=== PATIENT | male | born 1945 | race Caucasian/White ===

== ENCOUNTER 2019-01-20 07:45 | Day surgery (SDC) | payer MEDICARE, OTHER ==
[~2019-01-20] VITALS: Ht 162.6 cm; Wt 100.0 kg
[2019-01-20] MEDS ORDERED: SODIUM CHLORIDE 0.9% 1,000 ML IV SCH ×2 (08:02→10:36)
[2019-01-20] MEDS ORDERED: ISOS30TA8 PO (08:14)
[2019-01-20] MEDS ORDERED: ATOR20TA37 PO (08:14)
[2019-01-20] MEDS ORDERED: AMLO-150 PO (08:14)
[2019-01-20] MEDS ORDERED: IPRA4AER INH (08:14)
[2019-01-20] MEDS ORDERED: ASPI81TA45 PO (08:14)
[2019-01-20] MEDS ORDERED: MULT-751 PO (08:14)
[2019-01-20] MEDS ORDERED: OMEP40CA42 PO (08:14)
[2019-01-20 08:18] VITALS: BP 104/64
[2019-01-20] MEDS ORDERED: PLEASE ENTER HEIGHT AND WEIGHT AND ALLERGIES MC SCH (08:30)
[2019-01-20] MEDS ORDERED: CLOPIDOGREL 75 MG TABLET PO ONE (08:30)
[2019-01-20] MEDS ORDERED: FENTANYL PF 100 MCG/2ML ONE (09:04)
[2019-01-20] MEDS ORDERED: MIDAZOLAM 1 MG/ML, 5ML ONE (09:04)
[2019-01-20] MEDS ORDERED: HEPARIN 1,000 UNITS/ML, 10ML ONE (09:05)
[2019-01-20] MEDS ORDERED: NITROGLYCERIN 5 MG/ML, 10ML ONE (09:05)
[2019-01-20] MEDS ORDERED: VERAPAMIL 2.5 MG/ML, 2ML ONE (09:05)
[2019-01-20] MEDS ORDERED: LIDOCAINE-MPF 1%, 5ML ONE (09:05)
[2019-01-20] MEDS ORDERED: BIVALIRUDIN 250 MG ONE (09:38)
== END 2019-01-20 11:38 | disposition home or self-care (01) ==
LOC: CACL 07:45
PROVIDERS: ATTEND Internal Medicine Cardiovascular Disease
DX: R07.9 Chest pain, unspecified (principal); I25.728 Atherosclerosis of autologous artery coronary artery bypass graft(s) with other forms of angina pectoris; I25.82 Chronic total occlusion of coronary artery; I10 Essential (primary) hypertension; J44.9 Chronic obstructive pulmonary disease, unspecified; E78.5 Hyperlipidemia, unspecified; F17.290 Nicotine dependence, other tobacco product, uncomplicated; E66.3 Overweight; Z68.38 Body mass index [BMI] 38.0-38.9, adult; Z79.82 Long term (current) use of aspirin; Z79.899 Other long term (current) drug therapy
CPT/HCPCS: 93459; 99156; 99157; C1769; C1894; J1644; J2250; J3010; Q9967; J0583

== ENCOUNTER 2019-09-18 09:24 | Outpatient (CLI) | payer MEDICARE, OTHER ==
[~2019-09-18 09:24] MED LIST: AMLO-150 PO; ASPI81TA45 PO; ATOR20TA37 PO; IPRA4AER INH; ISOS30TA8 PO; MULT-751 PO; OMEP40CA42 PO
[2019-09-18 10:47] LABS: BASOPHILS # (AUTO) 0.05 x10^3/uL (0-0.1); BASOPHILS % (AUTO) 1 % (0-1); EOSINOPHILS % (AUTO) 8 % (1-7); LYMPHOCYTES % (AUTO) 27 % (22-44); MD NO; MEAN CORPUSCULAR HEMOGLOBIN 31.5 pg (27.5-34.5); MEAN CORPUSCULAR HGB CONC 33.4 g/dL (33.2-36.2); MEAN PLATELET VOLUME 8.2 fL (7.4-10.4); MONOCYTES # (AUTO) 0.61 x10^3/uL (0.2-0.8); MONOCYTES % (AUTO) 8 % (2-9); NEUTROPHILS # (AUTO) 4.25 x10^3/uL (1.8-6.8); NEUTROPHILS % (AUTO) 57 % (42-75); PLATELET COUNT 204 x10^3/uL (130-400); RED BLOOD COUNT 4.79 x10^6/uL (4.38-5.82); RED CELL DISTRIBUTION WIDTH 14.6 % (9.4-14.8)
[2019-09-18 12:27] LABS: CHLORIDE 108 mmol/L (98-107)
[2019-09-18 12:35] LABS: ALANINE AMINOTRANSFERASE 22 U/L (12-78); ALBUMIN 3.3 g/dL (3.4-5.0); ALKALINE PHOSPHATASE 85 U/L (45-117); ANION GAP 4 mmol/L (5-15); BILIRUBIN,TOTAL 0.5 mg/dL (0.2-1.0); CALCIUM 9.1 mg/dL (8.5-10.1); CREATININE 1.13 mg/dL (0.7-1.3); TOTAL PROTEIN 7.1 g/dL (6.4-8.2)
[2019-10-30] MEDS ORDERED: FURO20TA3 PO (06:57)
[2019-10-31] MEDS ORDERED: CLOP75TA PO (06:58)
== END 2019-09-18 23:59 | disposition home or self-care (01) ==
LOC: STAR 09:24
PROVIDERS: ATTEND Surgery
DX: Z01.818 Encounter for other preprocedural examination (principal); I71.4 Abdominal aortic aneurysm, without rupture; J92.9 Pleural plaque without asbestos
CPT/HCPCS: 36415; 71046; 80053; 85025; 87635; 93005

== ENCOUNTER 2019-09-22 05:41 | Day surgery (SDC) | payer MEDICARE, OTHER ==
[~2019-09-22] VITALS: Ht 162.6 cm; Wt 100.0 kg
[2019-09-22] MEDS ORDERED: SODIUM CHLORIDE 0.9% 1,000 ML IV SCH (06:18)
[2019-09-22 06:41] VITALS: BP 109/59
[2019-09-22] MEDS ORDERED: FLUMAZENIL 0.1 MG/1 ML, 5ML ONE (07:08)
[2019-09-22] MEDS ORDERED: MIDAZOLAM 1 MG/ML, 5ML ONE (07:08)
[2019-09-22] MEDS ORDERED: FENTANYL PF 100 MCG/2ML ONE (07:08)
[2019-09-22] MEDS ORDERED: HEPARIN 1,000 UNITS/ML, 10ML ONE ×2 (07:08→09:27)
[2019-09-22] MEDS ORDERED: NALOXONE 1 MG/ML, 2ML ONE (07:09)
[2019-09-22] MEDS ORDERED: PROTAMINE SULFATE 10 MG/ML, 25ML ONE (07:09)
[2019-09-22] MEDS ORDERED: LIDOCAINE 1%, 10ML ONE (07:23)
[2019-09-22] MEDS ORDERED: VISIPAQUE 270 MG/ML, 50ML BOTTLE ONE (08:00)
== END 2019-09-22 12:40 | disposition home or self-care (01) ==
LOC: OUT 05:41
PROVIDERS: ATTEND Surgery
DX: I71.4 Abdominal aortic aneurysm, without rupture (principal); Z11.59 Encounter for screening for other viral diseases; I77.1 Stricture of artery; I10 Essential (primary) hypertension; J44.9 Chronic obstructive pulmonary disease, unspecified; E78.00 Pure hypercholesterolemia, unspecified; I25.10 Atherosclerotic heart disease of native coronary artery without angina pectoris; E66.9 Obesity, unspecified; F17.211 Nicotine dependence, cigarettes, in remission; Z68.37 Body mass index [BMI] 37.0-37.9, adult; Z79.82 Long term (current) use of aspirin; Z79.899 Other long term (current) drug therapy; Z95.1 Presence of aortocoronary bypass graft; Z99.81 Dependence on supplemental oxygen; Z98.890 Other specified postprocedural states; Z82.49 Family history of ischemic heart disease and other diseases of the circulatory system; Z80.1 Family history of malignant neoplasm of trachea, bronchus and lung; Z80.8 Family history of malignant neoplasm of other organs or systems
CPT/HCPCS: 36415; 37242; 75625; 75716; 76937; 87635; 99156; 99157; C1751; C1760; C1769; C1887; C1894; J1644; J2250; J2720; J3010; J7030; Q9966; 75710; J2310

== ENCOUNTER → 2019-11-20 | Outpatient (CLI) | payer MEDICARE, OTHER ==
[~2019-11-20] MED LIST changes: +CLOP75TA PO; +FURO20TA3 PO; +OMNIPAQUE 350 MG/ML, 100ML BOTTLE ONE
== END | disposition home or self-care (01) ==
LOC: CFH 10:29
PROVIDERS: ATTEND Surgery
DX: E04.1 Nontoxic single thyroid nodule (principal); E07.89 Other specified disorders of thyroid; I25.10 Atherosclerotic heart disease of native coronary artery without angina pectoris; I71.4 Abdominal aortic aneurysm, without rupture; N28.1 Cyst of kidney, acquired
CPT/HCPCS: 71275; 74174; Q9967